=== PATIENT | male | born 1985 | race Caucasian/White ===

== ENCOUNTER 2018-03-10 21:30 | Emergency (ER) | payer OTHER ==
[~2018-03-10] VITALS: Ht 170.2 cm; Wt 71.7 kg
[~2018-03-10 21:30] MED LIST: NOHOMEMEDICATIONS
[2018-03-10] MEDS ORDERED: PAXIL 20 MG TAB20 MG PO (21:44)
[2018-03-10 22:24] LABS: URINE BILIRUBIN NEGATIVE (Negative); URINE BLOOD TRACE (Negative); URINE CLARITY CLEAR; URINE COLOR YELLOW; URINE GLUCOSE-RANDOM NEGATIVE (Negative); URINE KETONES NEGATIVE (Negative); URINE LEUKOCYTES-REFLEX NEGATIVE (Negative); URINE NITRITE-REFLEX NEGATIVE (Negative); URINE PROTEIN NEGATIVE (Negative); URINE SPECIFIC GRAVITY >= 1.030 (1.005-1.030); URINE UROBILINOGEN 0.2 E.U./dl (0.2-1.0)
[2018-03-10 22:31] LABS: AMP/METHAMP Negative (Negative); BARBITURATES Negative (Negative); BENZODIAZEPINES Negative (Negative); COCAINE Negative (Negative); METHADONE Negative (Negative); OPIATES Negative (Negative); PCP Negative (Negative); THC Negative (Negative)
[2018-03-10 22:42] LABS: ABSOLUTE EOSINOPHILS 0.4 thou/uL (0.0-0.7); ABSOLUTE MONOCYTES 0.6 thou/uL (0.0-1.2); ABSOLUTE NEUTROPHILS 3.3 thou/uL (1.6-8.1); BASOPHILS 0.6 %; EOSINOPHILS 6.4 %; HEMATOCRIT 44.8 % (42.0-52.0); HEMOGLOBIN 15.1 gm/dL (14.0-18.0); LYMPHOCYTES 31.4 %; MCH 29.8 pg (26.0-34.0); MCHC 33.8 g/dL (28.0-37.0); MCV 88.2 fL (80.0-100.0); MONOCYTES 9.9 %; MPV 8.7 fl. (7.2-11.1); NUCLEATED RBCS 0 /100WBC; PLATELET COUNT* 219 thou/uL (150-400); POLYS 51.7 %; RBC 5.08 mil/uL (4.50-6.00); RDW-CV 12.9 % (10.5-14.5); WBC 6.4 thou/uL (4.0-11.0)
[2018-03-10 22:44] LABS: ANION GAP 6 mmol/L (7-16); BUN 16 mg/dL (7-18); CALCIUM 9.6 mg/dL (8.5-10.1); CHLORIDE 102 mmol/L (98-107); CO2 30 mmol/L (21-32); CREATININE 0.9 mg/dL (0.6-1.3); GLUCOSE 95 mg/dL (70-99); POTASSIUM 3.4 mmol/L (3.5-5.1); SODIUM 138 mmol/L (136-145)
[2018-03-10 22:52] LABS: ALBUMIN 4.1 g/dL (3.4-5.0); ALKALINE PHOSPHATASE 65 U/L (46-116); SGOT 21 U/L (15-37); SGPT 28 U/L (30-65); TOTAL BILIRUBIN 0.6 mg/dL (<0.1-1.0); TOTAL PROTEIN 7.4 g/dL (6.4-8.2); TROPONIN-I LEVEL <0.06 ng/mL (<0.06)
[2018-03-11] MEDS ORDERED: XANAX 0.5 MG0.5 M1 PO (00:35)
[2018-03-11 01:01] VITALS: BP 132/74
--- NOTE | 2018-03-11 14:37 | EKG ---
[place] [address] ELECTROCARDIOGRAM REPORT Name: ROBERT GUADALUPE Room: [facility]#: [id number] Admission: 03/10/18 Attend Phys: Discharge: 03/11/18 Date of : 89 Report #: [id number] THIS REPORT FOR: //name// [facility] ED Test Date: 2018-03-10 Test Time: 22:22:15 Pat Name: ROBERT GUADALUPE Department: Room: Gender: M Assistant Operator: ELENO : 1985 Requested By: Kinsey Singh Order Number: [id number] MD: Vj Chin Measurements Intervals [place] Rate: 75 P: 40 WI: 139 QRS: 27 QRSD: 96 T: 30 QT: 357 QTc: 399 Interpretive Statements Sinus rhythm Compared to ECG 09/06/2013 21:01:22 No significant changes Electronically Signed On 03-11-2018 14:37:20 CDT by Vj Chin [email or web address] <ELECTRONICALLY SIGNED> By: Angela Chin MD, [facility] 03/11/18 1437 21 21 Angela Chin MD, FACC /EPI
== END 2018-03-11 01:02 | disposition home or self-care (01) ==
LOC: M.ERS 21:30
PROVIDERS: Nurse Practitioner Family
DX: F41.9 Anxiety disorder, unspecified (principal); F32.9 Major depressive disorder, single episode, unspecified

== ENCOUNTER 2018-05-31 11:42 | Emergency (ER) | payer OTHER ==
[~2018-05-31] VITALS: Ht 170.1 cm; Wt 72.6 kg
[~2018-05-31 11:42] MED LIST changes: +PAXIL 20 MG TAB20 MG PO; +XANAX 0.5 MG0.5 M1 PO
[2018-05-31] MEDS ORDERED: OLANZAPINE5 MG PO (11:54)
[2018-05-31] MEDS ORDERED: NORCO 5-325 TA1 EACH PO (12:51)
[2018-05-31] MEDS ORDERED: IBUPROFEN 800800 M1 PO (12:51)
[2018-05-31 13:09] VITALS: BP 132/82
== END 2018-05-31 13:12 | disposition home or self-care (01) ==
LOC: M.ERS 11:42
DX: S93.491A Sprain of other ligament of right ankle, initial encounter (principal); F41.9 Anxiety disorder, unspecified; F32.9 Major depressive disorder, single episode, unspecified; W01.0XXA Fall on same level from slipping, tripping and stumbling without subsequent striking against object, initial encounter; Y93.89 Activity, other specified; Y92.89 Other specified places as the place of occurrence of the external cause; Y99.8 Other external cause status

== ENCOUNTER 2020-07-26 10:30 | Emergency (ER) | payer OTHER ==
[~2020-07-26] VITALS: Ht 170.2 cm; Wt 74.8 kg
[~2020-07-26 10:30] MED LIST changes: +IBUPROFEN 800800 M1 PO; +NORCO 5-325 TA1 EACH PO; +OLANZAPINE5 MG PO
[2020-07-26] MEDS ORDERED: ZYRTEC 10 MG TA10 MG PO (11:08)
[2020-07-26] MEDS ORDERED: PEPCID20 MG PO (11:08)
[2020-07-26] MEDS ORDERED: PREDNISONE 20 M20 M1 PO (11:08)
[2020-07-26 11:16] VITALS: BP 163/111
== END 2020-07-26 11:17 | disposition home or self-care (01) ==
LOC: M.ERS 10:30
DX: T78.40XA Allergy, unspecified, initial encounter (principal); F41.9 Anxiety disorder, unspecified; F32.9 Major depressive disorder, single episode, unspecified; X58.XXXA Exposure to other specified factors, initial encounter

== ENCOUNTER 2020-11-03 09:04 | Emergency (ER) | payer OTHER ==
[~2020-11-03] VITALS: Ht 170.2 cm; Wt 77.1 kg
[~2020-11-03 09:04] MED LIST changes: +PEPCID20 MG PO; +PREDNISONE 20 M20 M1 PO; +ZYRTEC 10 MG TA10 MG PO
[2020-11-03 10:06] VITALS: BP 148/78
== END 2020-11-03 10:07 | disposition home or self-care (01) ==
LOC: M.ERS 09:04
DX: B34.9 Viral infection, unspecified (principal); Z20.828 Contact with and (suspected) exposure to other viral communicable diseases

== ENCOUNTER 2020-11-18 19:13 | Emergency (ER) | payer OTHER ==
[~2020-11-18] VITALS: Ht 170.2 cm; Wt 74.8 kg
[2020-11-18] MEDS ORDERED: NEURONTIN100 MG (19:30)
[2020-11-18] MEDS ORDERED: CIPROFLOXIN HC2.5 M1 OPHTHALMIC (20:37)
[2020-11-18 20:48] VITALS: BP 148/98
== END 2020-11-18 20:49 | disposition home or self-care (01) ==
LOC: M.ERS 19:13
DX: J98.8 Other specified respiratory disorders (principal); H10.9 Unspecified conjunctivitis; Z20.828 Contact with and (suspected) exposure to other viral communicable diseases

== ENCOUNTER 2021-06-30 00:54 | Emergency (ER) | payer OTHER ==
[~2021-06-30] VITALS: Ht 170.2 cm; Wt 71.2 kg
[~2021-06-30 00:54] MED LIST changes: +CIPROFLOXIN HC2.5 M1 OPHTHALMIC; +NEURONTIN100 MG
[2021-06-30] MEDS ORDERED: OXTELLAR XR300 MG PO (01:20)
[2021-06-30 01:54] LABS: HEMOGLOBIN 13.7 gm/dL (14.0-18.0); MCH 31.4 pg (26.0-34.0); MCHC 35.2 g/dL (28.0-37.0); MCV 89.2 fL (80.0-100.0); MPV 7.6 fl. (7.2-11.1); RBC 4.37 mil/uL (4.50-6.00); RDW-CV 12.9 % (10.5-14.5); WBC 6.1 thou/uL (4.0-11.0)
[2021-06-30 01:56] LABS: CALCIUM 8.2 mg/dL (8.5-10.1); CREATININE 1.1 mg/dL (0.6-1.3); POTASSIUM 3.7 mmol/L (3.5-5.1)
[2021-06-30 01:59] LABS: PROTIME 10.2 Seconds (9.20-11.50)
[2021-06-30 02:01] LABS: ALBUMIN 3.6 g/dL (3.4-5.0); TOTAL BILIRUBIN 0.4 mg/dL (<0.1-1.0); TOTAL PROTEIN 6.9 g/dL (6.4-8.2)
[2021-06-30 04:59] VITALS: BP 146/98
== END 2021-06-30 05:01 | disposition home or self-care (01) ==
LOC: M.ERS 00:54
PROVIDERS: Personal Emergency Response Attendant
DX: S06.0X0A Concussion without loss of consciousness, initial encounter (principal); S91.111A Laceration without foreign body of right great toe without damage to nail, initial encounter; S01.112A Laceration without foreign body of left eyelid and periocular area, initial encounter; S01.312A Laceration without foreign body of left ear, initial encounter; S83.8X1A Sprain of other specified parts of right knee, initial encounter; S40.212A Abrasion of left shoulder, initial encounter; F10.129 Alcohol abuse with intoxication, unspecified; Y90.8 Blood alcohol level of 240 mg/100 ml or more; V89.2XXA Person injured in unspecified motor-vehicle accident, traffic, initial encounter; Y93.89 Activity, other specified; Y92.89 Other specified places as the place of occurrence of the external cause; Y99.8 Other external cause status

== ENCOUNTER 2021-07-06 21:25 | Emergency (ER) | payer OTHER ==
[~2021-07-06] VITALS: Ht 170.2 cm; Wt 70.3 kg
[~2021-07-06 21:25] MED LIST changes: +OXTELLAR XR300 MG PO
[2021-07-06 21:48] LABS: HEMATOCRIT 39.7 % (42.0-52.0); HEMOGLOBIN 13.7 gm/dL (14.0-18.0); MCH 31.3 pg (26.0-34.0); MCHC 34.4 g/dL (28.0-37.0); MCV 90.8 fL (80.0-100.0); MPV 7.6 fl. (7.2-11.1); RBC 4.37 mil/uL (4.50-6.00); RDW-CV 12.9 % (10.5-14.5); WBC 6.2 thou/uL (4.0-11.0)
[2021-07-06 21:58] LABS: CREATININE 0.9 mg/dL (0.6-1.3); POTASSIUM 3.1 mmol/L (3.5-5.1)
[2021-07-06 22:03] LABS: ALBUMIN 3.9 g/dL (3.4-5.0); TOTAL BILIRUBIN 0.3 mg/dL (<0.1-1.0); TOTAL PROTEIN 6.7 g/dL (6.4-8.2)
[2021-07-06 22:09] LABS: ACETAMINOPHEN < 2 ug/mL (10-30); ALCOHOL 209 mg/dL (<10); SALICYLATE < 2.8 mg/dL (2.8-20.0)
[2021-07-06 22:27] LABS: SGPT 32.4 U/L (30-65)
[2021-07-07 04:46] VITALS: BP 134/90
== END 2021-07-07 04:47 | disposition home or self-care (01) ==
LOC: M.ERS 21:25
PROVIDERS: Personal Emergency Response Attendant
DX: F10.129 Alcohol abuse with intoxication, unspecified (principal); F32.9 Major depressive disorder, single episode, unspecified; F41.9 Anxiety disorder, unspecified; Y90.7 Blood alcohol level of 200-239 mg/100 ml

== ENCOUNTER 2021-07-26 01:15 | Emergency (ER) | payer OTHER ==
[~2021-07-26] VITALS: Ht 170.2 cm; Wt 74.8 kg
[2021-07-26 02:03] LABS: ABSOLUTE BASOPHILS 0.1 thou/uL (0.0-0.2); ABSOLUTE EOSINOPHILS 0.3 thou/uL (0.0-0.7); ABSOLUTE MONOCYTES 0.4 thou/uL (0.0-1.2); ABSOLUTE NEUTROPHILS 3.9 thou/uL (1.6-8.1); BASOPHILS 1.4 %; EOSINOPHILS 4.3 %; HEMATOCRIT 40.8 % (42.0-52.0); HEMOGLOBIN 14.1 gm/dL (14.0-18.0); LYMPHOCYTES 29.4 %; MCH 30.9 pg (26.0-34.0); MCHC 34.6 g/dL (28.0-37.0); MCV 89.3 fL (80.0-100.0); MONOCYTES 5.7 %; NUCLEATED RBCS 0 /100WBC; PLATELET COUNT* 219 thou/uL (150-400); POLYS 59.2 %; RBC 4.56 mil/uL (4.50-6.00); RDW-CV 13.1 % (10.5-14.5); WBC 6.6 thou/uL (4.0-11.0)
[2021-07-26 02:10] LABS: CALCIUM 8.2 mg/dL (8.5-10.1); CREATININE 1.1 mg/dL (0.6-1.3); POTASSIUM 3.1 mmol/L (3.5-5.1)
[2021-07-26 02:15] LABS: ALBUMIN 3.8 g/dL (3.4-5.0); TOTAL BILIRUBIN 0.3 mg/dL (<0.1-1.0); TOTAL PROTEIN 6.7 g/dL (6.4-8.2)
[2021-07-26 02:50] LABS: URINE BILIRUBIN NEGATIVE (Negative); URINE BLOOD NEGATIVE (Negative); URINE CLARITY CLEAR; URINE COLOR YELLOW; URINE GLUCOSE-RANDOM NEGATIVE (Negative); URINE KETONES TRACE (Negative); URINE LEUKOCYTES-REFLEX NEGATIVE (Negative); URINE NITRITE-REFLEX NEGATIVE (Negative); URINE PROTEIN NEGATIVE (Negative); URINE SPECIFIC GRAVITY 1.025 (1.005-1.030)
[2021-07-26] MEDS ORDERED: CIPROFLOXACIN500 M1 PO (05:18)
[2021-07-26 05:30] VITALS: BP 120/62
== END 2021-07-26 05:30 | disposition home or self-care (01) ==
LOC: M.ERS 01:15
PROVIDERS: Emergency Medicine
DX: R10.31 Right lower quadrant pain (principal); R10.32 Left lower quadrant pain; R33.9 Retention of urine, unspecified; M54.5 Low back pain; F41.9 Anxiety disorder, unspecified; F32.9 Major depressive disorder, single episode, unspecified; Z86.73 Personal history of transient ischemic attack (TIA), and cerebral infarction without residual deficits; Z79.899 Other long term (current) drug therapy